=== PATIENT | male | born 1995 | race Caucasian/White ===

== ENCOUNTER 2020-04-23 11:37 | Emergency (ER) | payer BC ==
[~2020-04-23] VITALS: Wt 95.3 kg
[~2020-04-23 11:37] MED LIST: AMOXICILLIN500 MG PO; NKHM
[2020-04-23] MEDS ORDERED: ZITHROMAX250 MG PO (13:53)
[2020-04-23] MEDS ORDERED: MUCINEX1200 M1 PO (13:53)
== END 2020-04-23 13:53 | disposition home or self-care (01) ==
LOC: ED 11:37
DX: J40 Bronchitis, not specified as acute or chronic (principal)

== ENCOUNTER 2022-12-10 19:42 | Emergency (ER) | payer BC ==
[~2022-12-10] VITALS: Wt 81.6 kg
[~2022-12-10 19:42] MED LIST changes: +MUCINEX1200 M1 PO; +ZITHROMAX250 MG PO
== END 2022-12-10 22:05 | disposition home or self-care (01) ==
LOC: ED 19:42
DX: S80.861A Insect bite (nonvenomous), right lower leg, initial encounter (principal); R51.9 Headache, unspecified; W57.XXXA Bitten or stung by nonvenomous insect and other nonvenomous arthropods, initial encounter; Y93.89 Activity, other specified; Y92.009 Unspecified place in unspecified non-institutional (private) residence as the place of occurrence of the external cause; Y99.8 Other external cause status